=== PATIENT | female | born 1985 | race Caucasian/White ===

== ENCOUNTER 2017-10-16 19:35 | Emergency (ER) | payer OTHER ==
[2017-10-16] MEDS ORDERED: Acetaminophen/Codeine 300-30 MG Tab PO ONE (21:15)
--- NOTE | 2017-10-17 01:01 | ER ---
DATE SEEN: 10/16/2017 REASON FOR VISIT: Miscarriage. HISTORY OF PRESENT ILLNESS: This is a 32-year-old female who is complaining of pelvic cramps and vaginal bleeding, started this morning with spotting. She was seen at the clinic at [place] and symptoms got worse as the day progressed, now she is changing the pad every hour or so. Denies fever or chills. She is around 9 weeks, which was confirmed by an ultrasound, which was done about 2 weeks ago. At that time, they noted a large subchorionic hemorrhage. Blood type, AB positive. PAST MEDICAL HISTORY: She is otherwise healthy. ALLERGIES: She is allergic to sulfa. MEDICATIONS: Reviewed. PHYSICAL EXAMINATION: VITAL SIGNS: She is afebrile. Her blood pressure is 108/66 and pulse is 72. ABDOMEN: Soft with mild tenderness to palpation. SKIN: No pallor or jaundice. LABORATORY DATA: Initial hemoglobin is 11.7. HCG is more than 200,000. Ultrasound, unavailable. IMPRESSION: Miscarriage. PLAN: I suspect a miscarriage, even though I cannot confirm it with just one hCG level and without an ultrasound. We scheduled an ultrasound at noon tomorrow and then repeat hCG if necessary on Saturday. The patient was discharged with Tylenol No. 3 one tablet every 8 hours p.r.n. for pain. /[id number] SUSANA/EDITH
== END 2017-10-16 21:20 | disposition home or self-care (01) ==
LOC: FB.ED 19:35
DX: O03.9 Complete or unspecified spontaneous abortion without complication (principal)
CPT/HCPCS: 36415; 80053; 84702; 85025; 99284; A9270-GY